=== PATIENT | male | born 1990 | race Caucasian/White ===

== ENCOUNTER → 2017-11-23 01:15 | Emergency (ER) | payer OTHER ==
[2017-11-22] MEDS: DIPHTH/TET/ACEL PERTUSS (ADULT) 0.5 ML VIAL IM (23:14)
[2017-11-22] MEDS: LIDOCAINE 1% (MPF) 30 ML INJ INJ (23:18)
[2017-11-22] MEDS: LIDOCAINE 1% (MDV) 10 ML INJ INJ (23:34)
[2017-11-23] MEDS: SOD CHLORIDE 0.9% 1,000 ML IV (00:31)
== END | disposition home or self-care (01) ==
DX: S61.412A Laceration without foreign body of left hand, initial encounter (principal); F17.210 Nicotine dependence, cigarettes, uncomplicated; W22.8XXA Striking against or struck by other objects, initial encounter; Y92.9 Unspecified place or not applicable; Z23 Encounter for immunization
CPT/HCPCS: 12001; 82962; 90471; 90715; 99284-25

== ENCOUNTER 2018-04-02 18:15 | Emergency (ER) | payer OTHER ==
[2018-04-02] MEDS: DIPHTH/TET/ACEL PERTUSS (ADULT) 0.5 ML VIAL IM* (18:48)
[2018-04-02] MEDS: ONDANSETRON 4 MG INJ IV (18:48)
[2018-04-02] MEDS: morphine SULFATE/PF (2 MG/2 ML) SYG IV (18:49)
[2018-04-02] MEDS: SOD CHLORIDE 0.9% 1,000 ML IV (18:49)
[2018-04-02 19:17] LABS: ADD MAN DIFF? NO
[2018-04-02 19:18] LABS: WHITE BLOOD COUNT 8.1 10^3/ul (4.8-10.8)
[2018-04-02 19:18] LABS: BASOPHIL # 0.1 10^3/ul (0.0-0.1); EOSINOPHILS # 0.8 10^3/ul (0.0-0.5); HEMATOCRIT 41.3 % (42.0-52.0); HEMOGLOBIN 13.6 g/dl (14.0-18.0); LYMPHOCYTES % 24.5 % (15.0-51.0); MEAN CORPUSCULAR HEMOGLOBIN 30.3 pg (29.0-33.0); MEAN CORPUSCULAR HGB CONC 32.9 g/dl (32.0-37.0); MEAN PLATELET VOLUME 10.4 fl (7.4-10.4); MONOCYTE # 0.6 10^3/ul (0.3-0.9); MONOCYTES % 7.1 % (0.0-11.0); NEUTROPHIL # 4.6 10^3/ul (1.6-7.5); PLATELET COUNT 261 10^3/UL (140-415); RED BLOOD COUNT 4.49 10^6/ul (4.70-6.10); RED CELL DISTRIBUTION WIDTH 11.8 % (11.5-14.5)
[2018-04-02 19:32] LABS: INR 0.93; PROTIME 12.6 Sec (11.9-14.9)
[2018-04-02 19:33] LABS: PARTIAL THROMBOPLASTIN TIME 30.4 Sec (23.0-35.0)
[2018-04-02 19:35] LABS: ALANINE AMINOTRANSFERASE 15 IU/L (13-69); ALKALINE PHOSPHATASE 55 IU/L (42-121); ASPARTATE AMINO TRANSFERASE 28 IU/L (15-46); BILIRUBIN,INDIRECT 0.5 mg/dl (0-1.1); BILIRUBIN,TOTAL 0.5 mg/dl (0.2-1.3); BLOOD UREA NITROGEN 15 mg/dl (7-20); CALCIUM 9.6 mg/dl (8.4-10.2); CARBON DIOXIDE 30 mmol/L (21-31); CREATININE 0.94 mg/dl (0.61-1.24); Estimated GFR > 60 mL/min (>60); GLUCOSE 65 mg/dl (70-220); POTASSIUM 4.5 mmol/L (3.5-5.1); SODIUM 142 mmol/L (135-144)
[2018-04-02 19:36] LABS: ALBUMIN 4.6 g/dl (3.3-4.9)
[2018-04-02 19:40] LABS: ANION GAP 11 (5-13); CHLORIDE 101 mmol/L (97-110); ETHANOL < 10.0 mg/dl (0-0)
[2018-04-02] MEDS: IOHEXOL 300MG/ML 150 ML BTL (20:35)
[2018-04-02] MEDS: SOD CHLORIDE 0.9% 100 ML (20:35)
[2018-04-02] MEDS: LIDOCAINE 1%/EPI (1:100,000) (MDV) 20 ML INJ (22:29)
[2018-04-02] MEDS: LIDOCAINE 1%/EPI 30 ML INJ INJ (22:29)
== END 2018-04-02 22:53 | disposition home or self-care (01) ==
LOC: E/R 18:15
DX: S06.0X1A Concussion with loss of consciousness of 30 minutes or less, initial encounter (principal); R07.9 Chest pain, unspecified; V49.09XA Driver injured in collision with other motor vehicles in nontraffic accident, initial encounter; Z87.891 Personal history of nicotine dependence; Z23 Encounter for immunization
CPT/HCPCS: 12001; 70450; 71045; 71260; 72125; 73130-RT; 73630; 74177; 80048; 80076; 80307; 85025; 85610; 85730; 90471; 90715; 96361; 96374; 96375; 99291-25